=== PATIENT | female | born 1965 | race Hispanic/Latino ===

== ENCOUNTER → 2021-12-09 | Outpatient (CLI) | payer OTHER | END | disposition home or self-care (01) | LOC: OIH 10:42 | PROVIDERS: ATTEND Internal Medicine Cardiovascular Disease | DX: Z13.6 Encounter for screening for cardiovascular disorders (principal) | CPT/HCPCS: 75571 ==

== ENCOUNTER → 2023-05-09 | Outpatient (CLI) | payer OTHER | END | disposition home or self-care (01) | LOC: RAH 07:00 | PROVIDERS: ATTEND Internal Medicine Gastroenterology | DX: R10.10 Upper abdominal pain, unspecified (principal); R11.0 Nausea | CPT/HCPCS: 78227; A9537 ==

== ENCOUNTER → 2023-06-01 | Outpatient (CLI) | payer OTHER, MEDICARE ==
[~2023-06-01] MED LIST: IOHEXOL-350 75 ML VIAL IV ONE
== END | disposition home or self-care (01) ==
LOC: RAH 10:00
PROVIDERS: ATTEND Internal Medicine Gastroenterology
DX: R10.10 Upper abdominal pain, unspecified (principal); Z98.890 Other specified postprocedural states
CPT/HCPCS: 74178; Q9967

== ENCOUNTER → 2024-03-05 | Outpatient (CLI) | payer OTHER, MEDICARE | END | disposition home or self-care (01) | LOC: RAH 09:06 | PROVIDERS: ATTEND Family Medicine | DX: M67.431 Ganglion, right wrist (principal) | CPT/HCPCS: 76882 ==

== ENCOUNTER 2025-07-04 06:24 | Observation (INO) | payer OTHER, MEDICARE ==
[2025-07-03 09:15] LABS: IMMATURE GRANULOCYTE ABSOLUTE 0.03 K/uL (0-1); NUCLEATED RED BLOOD CELLS 0.0 % (0.0-0.19); PLATELET COUNT (AUTO) 358 K/uL (130-400); RED BLOOD CELL COUNT(AUTO) 5.05 MIL/uL (4.00-5.50); RED CELL DISTRIBUTION WIDTH 14.6 % (11.0-15.5); WHITE BLOOD COUNT (AUTO) 8.1 K/uL (4.8-10.8)
[2025-07-03 09:24] LABS: CREATININE 0.8 mg/dL (0.5-1.0); GLOMERULAR FILTR. RATE CALC 85.0 mL/min (>90); GLUCOSE,RANDOM 171.0 mg/dL (70-105); SODIUM SERUM 139.0 mmol/L (136-145); UREA NITROGEN, BLOOD 18.0 mg/dL (7-18)
[2025-07-03 09:30] LABS: INR 0.94 (0.85-1.15)
[2025-07-03 09:37] VITALS: BP 134/74; PULSE 63; RESP 11; TEMP 97.9
[2025-07-04] VITALS (32 sets, daily range): BP systolic 93–144; BP diastolic 51–81; PULSE 66–106; RESP 15–21; TEMP 97.2–97.7; O2SAT 98
[~2025-07-04] VITALS: Ht 162.6 cm; Wt 80.8 kg
[~2025-07-04 06:24] MED LIST changes: +BENZ200C53 PO; +FLUO40CA49 PO; +GABA-529 PO; +INSU100V45 SQ; -IOHEXOL-350 75 ML VIAL IV ONE; +LORA2DIS5 IJ; +METF-444 PO; +OMEP40CA21 PO; +OXCA300T28 PO; +PIOG30TA70 PO; +PRAV10TA37 PO; +SEMA2PEN SQ; +TOPI-258 PO
[2025-07-04] MEDS: 0.9%NACL 1000ML 1,000 ML IV ONE (07:02)
[2025-07-04] MEDS ORDERED: SUCCINYLCHOLINE CHLORIDE 20 MG/ML 10 ML VIAL ONE (07:14)
[2025-07-04] MEDS ORDERED: LIDOCAINE PF 100MG/5ML (2%) SYRINGE 5ML ONE (07:14)
[2025-07-04] MEDS ORDERED: MIDAZOLAM HCL 1 MG/ML 2ML VIAL ONE (07:15)
[2025-07-04] MEDS: SUGAMMADEX SODIUM 200 MG/2 ML VIAL IV ONE (07:47)
--- NOTE | 2025-07-04 10:17 | OP ---
Operative Note: DATE OF PROCEDURE: 07/04/25 BASKET HAND WEAVER: None ANESTHESIA: General PREOPERATIVE DIAGNOSIS: 1. DJD, osteochondral defect left ankle 2. Ankle instability left POSTOPERATIVE DIAGNOSIS: Same Findings: Medial 3rd of the talus was cystic and the cartilage was delaminated PROCEDURE: 1. Total ankle arthroplasty with the implant left 2. Lateral ankle stabilization left ESTIMATED BLOOD LOSS: Minimal INDICATIONS: Patient had 3 procedure done in the left ankle for ankle problem by different surgeons. MRI shows degeneration of the medial 1/3 of the talar dome and sign of multiple lateral ankle stabilization procedures. The patient wanted more definitive procedure done for the cystic ankle problem. Injectables: 10 cc of 0.5% Marcaine plain locally. Popliteal block per anesthesia postoperatively Specimen: None Materials: Sherry Talaris Ankle implant of size 0 long tibia and size 0 talus. 3-0 Vicryl, 3-0 nylon, #2 FiberWire Hemostasis: Pneumonic thigh tourniquet at 280 mm Hg DESCRIPTION OF PROCEDURE: The patient was brought into the operating room and placed on table in a supine position and general anesthesia was induced. Time-out was called with all the staff in the room to identify the patient procedure and procedure site. Patient's left lower extremity was prepped and draped in usual aseptic manner, exsanguinated utilizing Esmarch bandage and pneumonic thigh tourniquet was inflated at 280 mm Hg. Procedure 1. Total ankle replacement left A curvilinear incision was made on the anterior aspect of the ankle. Incision was deepened in subcu tissue, care being taken to retract and protect all the vital neurovascular structures. Medial dorsal cutaneous nerve was retracted laterally. Extensor retinaculum were then incised longitudinally. Deeper dissection was carried down between the tibialis anterior tendon and extensor hallucis longus tendon. Major neurovascular bundle was retracted laterally. Small bleeders were coagulated. Capsular incision was made in the anterior aspect of the ankle joint longitudinally. Capsular layer was reflected medially and laterally to expose the ankle joint. Medial 1/3 portion of the talus was delaminated and cystic lesion was seen. Osteophyte was resected and passed from the operative site. Alignment jig was then placed on the left lower extremity. Using alignment jig cutting guide was placed in the position to take out mild varus deformity upon osteotomy. Using the aligned cutting block confirmed under the fluoroscopy in multiple views tibia and talus osteotomy were made. Trial was used to align for keel and stem placements. After measuring, size 0 implant was the best option for the patient. The trials were removed and the surgical wound was irrigated aggressively utilizing copious amounts of normal sterile saline with a pressure. The actual implant was then inserted and placement was confirmed under the fluoroscopy in multiple views. Range of motion was maintained and the ankle was stable. Procedure 2. Lateral ankle stabilization left At this point previous tendon transfer was identified on the lateral aspect of the incision the tendon was firmly fixated into the tarsal bone periosteal layer of the lateral malleolus and remaining anterior talofibular ligament was then sutured onto the stable tendon which was anchored into the talus to tighten the lateral collateral ligament while patient's foot was placed in a neutral position. #2 FiberWire was utilized for this task. Lateral ankle stability was confirmed. Under fluoroscopy the ankle was stressed in inversion motion and there was no displacement noted. The surgical wound was once again irrigated aggressively utilizing copious amounts of normal sterile saline with a pressure. With new instruments, capsul ar layer was reapproximated utilizing 3-0 Vicryl extensor retinaculum with 3-0 Vicryl subcutaneous tissue layer with 3-0 Vicryl and skin via 3-0 nylon. The surgical wound was dressed with dry sterile dressing followed by Saleh compression dressing. The patient tolerated the procedure and anesthesia. SEAN JAIN DPM Jul 04, 2025 10:17
--- NOTE | 2025-07-04 10:28 | HMCIMG ---
ANKLE COMP 3VWS LT REASON: LT total ankle TECHNIQUE: 7 views were obtained. FINDINGS: Patient undergoing ankle arthroplasty. Fluoroscopy time 2 minutes 40 seconds. IMPRESSION: Details of the finding in the operative notes.
--- NOTE | 2025-07-04 14:10 | CONS ---
[facility] CONSULTATION NOTE Date of Service: Jul 04, 2025 Reason for Consultation: [ medical management ] Requesting Physician: [ Dr Ana BERG ] HISTORY OF PRESENT ILLNESS: [ ] This is a 60 year old female with history of multiple surgeries to left foot in the past is here today she underwent Total ankle arthroplasty with the implant left and Lateral ankle stabilization left given to DJD, osteochondral defect left ankle and ankle instability. Hospitalist consulted for medical management. The patient has foot brace applied to left foot The patient is fully awake reports dull pain at this time to surgical area. Denies chest pain or shortness of breath. REVIEW OF SYSTEMS a 12 point ROS obtained all relevant positive documented ROS obtained. PAST MEDICAL HISTORY: [ ]DM HTN, HLD GERD PAST SURGICAL HISTORY: [ ]appendectomy breast sx, multiple foot surgery, hernia repair, hysterectomy, tonsillectomy PAST SOCIAL HISTORY: [ ]denies smoking tobacco products and ETOH use FAMILY HISTORY: [ ] dm HTN father and mother Coded Allergies: levetiracetam (Unverified Allergy, Unknown, 07/03/25) lisinopril (Unverified Allergy, Unknown, 07/03/25) PHYSICAL EXAM GENERAL APPEARANCE: The patient is awake, alert, and oriented, in no acute cardiopulmonary distress. NEUROLOGICAL: Cranial nerves II-XII grossly intact. Motor is 5/5 in bilateral upper and lower extremities proximal to distal. No sensory deficits. HEENT: Face is symmetric. Pupils are equal and reactive. Extraocular movements are intact. NECK: Supple. No JVD. No thyromegaly. No submental, submandibular, pre- /postauricular, occipital or supraclavicular lymphadenopathy. CHEST: Normal chest expansion. No Telemetry. LUNGS: Absence of any rales, rhonchi or any wheezing. CARDIOVASCULAR: Regular. S1 and S2 normal. No appreciable rubs, murmurs or gallops. ABDOMEN: Soft, nontender, and nondistended. There is no rebound, voluntary guarding, or rigidity. : Deferred. No Hair. EXTREMITIES: Non-edematous and not cyanotic. No clubbing. Good capillary refill. SKIN: No skin breakdown. Vital Sign (Last 24 Hours) 07/04/25 07/04/25 10:55 12:09 Temp 97.3 Pulse 86 Resp 15 B/P (MAP) 120/74 Pulse Ox 98 O2 Delivery Room Air* O2 Flow Rate 0 FiO2 21 LABS: Laboratory: Test 07/04/25 10:06 07/03/25 09:05 Range/Units Whole Blood Glucose 251 H 70-110 MG/DL White Blood Count 8.1 4.8-10.8 K/uL Red Blood Count 5.05 4.00-5.50 MIL/uL Hemoglobin 13.7 12.0-16.0 g/dL Hematocrit 41.3 36-48 % Mean Corpuscular Volume 81.8 79-99 fL Mean Corpuscular Hemoglobin 27.1 27.0-33.0 pg Mean Corpuscular Hemoglobin Concent 33.2 32.0-36.0 g/dL Red Cell Distribution Width 14.6 11.0-15.5 % Platelet Count 358 130-400 K/uL Mean Platelet Volume 9.0 7.5-10.5 fL Immature Granulocyte % (Auto) 0.4 0-1 % Neutrophils (%) (Auto) 62.0 40.0-77.0 % Lymphocytes (%) (Auto) 26.2 21.0-51.0 % Monocytes (%) (Auto) 6.8 3.0-13.0 % Eosinophils (%) (Auto) 4.0 0.0-8.0 % Basophils (%) (Auto) 0.6 0.0-5.0 % Neutrophils # (Auto) 5.0 1.8-7.7 K/uL Lymphocytes # (Auto) 2.1 1.0-4.8 K/uL Monocytes # (Auto) 0.6 0.1-1.0 K/uL Eosinophils # (Auto) 0.32 0.00-0.70 K/uL Basophils # (Auto) 0.05 0.00-0.20 K/uL Absolute Immature Granulocyte (auto 0.03 0-1 K/uL Nucleated Red Blood Cells 0.0 0.0-0.19 % Prothrombin Time 10.0 9.6-11.6 SEC Prothromb Time International Ratio 0.94 0.85-1.15 Activated Partial Thromboplast Time 25.9 L 26.3-35.5 SEC Sodium Level 139 136-145 mmol/L Potassium Level 4.9 3.5-5.1 mmol/L Chloride Level 104 101-111 mmol/L Carbon Dioxide Level 32 21-32 mmol/L Blood Urea Nitrogen 18 7-18 mg/dL Creatinine 0.8 0.5-1.0 mg/dL Glomerular Filtration Rate Calc 85 >90 mL/min Random Glucose 171 H 70-105 mg/dL Total Calcium 9.0 8.5-10.1 mg/dL DIAGNOSTICS / RADIOLOGY: [ ] ASSESSMENT: Medial 3rd of the talus was cystic and the cartilage was delaminated s/p Total ankle arthroplasty with the implant left PLAN: [ ] Admit: medical surgical stool condition: guarded Status: Full coded IVF:NS at 75 ml/hr Consultants will follow Dr Perez post operative recommendations > Elevated left foot with 2 pillows > ice behind left knee > NWB left lower ext > PT teaching on crutches vs -walker Antibiotics:none ac/hs monitoring with SSRi coverage Labs cbc, cmp, mag+ Replace electrolytes as needed as per protocol to keep potassium above 4.0 magnesium 2.0. Home medications reviewed and reconciled PRN: MEDICATIONS Tylenol 650 mg po every 4 hrs for fever Zofran 4 mg IV every 6 hrs for n/v Hydralazine 5 mg IV every 4 hrs systolic pressure > 160 bowel regiment: lactulose 20 gm PO BID PRN constipation Pain management: morphine 2mg IV as needed 4 hrs . Supportive measures: DVT ppx, GI ppx all questions answered time spent: > 35 min Supervising MD: Dr. Jose Jones c/d This document was generated in part using voice recognition software, occasional wrong word or sound alike substitutions may have occurred due to the inherent limitations of voice recognition software. Read the chart carefully and recognize using context, where the substitutions have occurred. Although every effort was made to edit the content, hand weaver and typing errors may occur ADVANCED CARE PLANNING 1. Which of the following were discussed? Hospice Care - Yes / No Therapeutic options - Yes / No Advance Directives - Yes / No Other discussions - 2. Discussed with who? 3. Voluntary nature of this service was explained to the patient? Yes / No 4. Amount of time spent - 5. Reviewed by Physician? (if this service was performed by NPP) Yes / No ATTESTATION BY PHYSICIAN I have seen and examined the patient. I reviewed the documentation, medical decision making, and treatment plan as noted by the mid-level provider above. I agree with the findings and plan of care. MARTA MORRIS MD, [facility] Jul 04, 2025 14:10
[2025-07-04] MEDS ORDERED: LACTULOSE 20 GM/30 ML UDCUP PO PRN (15:00)
[2025-07-04] MEDS ORDERED: PoTASSium chl 10% ELIXIR 20MEQ 20 MEQ/15 ML UDCUP PO PRN (15:00)
[2025-07-04] MEDS ORDERED: MAGNESIUM 2GM PREMIX 50ML 50 ML IV PRN (15:00)
--- NOTE | 2025-07-04 15:32 | PN ---
Subjective Review of Systems PROGRESS NOTE Date of Visit: Jul 04, 2025 Time of Visit: 15:27 Subjective Seen 6 hours s/p TAR left. Doing well. Pain is starting. Just ordered pain med. No constitutional symp. + appetite. Had a sandwich. General: No Fever, No Chills, No Night Sweats, No Fatigue, No Malaise, No Appetite, No Other Objective Vitals and I/O Vital Sign (Last 24 Hours) 07/04/25 07/04/25 10:55 12:09 Temp 97.3 Pulse 86 Resp 15 B/P (MAP) 120/74 Pulse Ox 98 O2 Delivery Room Air* O2 Flow Rate 0 FiO2 21 Other physical findings No strike through. Left extremity rested on a cushion. Medications Current Medications Cefazolin Sodium 2 gm STK-MED ONCE .ROUTE Last administered on 07/04/25at 07:34; Start 07/04/25 at 06:09; Stop 07/04/25 at 06:09; Status DC Sodium Chloride 1,000 ml @ As Directed STK-MED ONCE IV Last administered on 07/04/25at 07:02; Start 07/04/25 at 06:09; Stop 07/04/25 at 06:10; Status DC Lidocaine HCl 100 mg STK-MED ONCE .ROUTE; Start 07/04/25 at 07:14; Stop 07/04/25 at 07:14; Status DC Phenylephrine HCl 10 mg STK-MED ONCE IV; Start 07/04/25 at 07:14; Stop 07/04/25 at 07:14; Status DC Ondansetron HCl 4 mg STK-MED ONCE .ROUTE; Start 07/04/25 at 07:14; Stop 07/04/25 at 07:14; Status DC Succinylcholine Chloride 200 mg STK-MED ONCE .ROUTE; Start 07/04/25 at 07:14; Stop 07/04/25 at 07:15; Status DC Dexamethasone Sodium Phosphate 10 mg STK-MED ONCE .ROUTE; Start 07/04/25 at 07:14; Stop 07/04/25 at 07:15; Status DC Midazolam HCl 2 mg STK-MED ONCE .ROUTE; Start 07/04/25 at 07:15; Stop 07/04/25 at 07:15; Status DC Propofol 200 mg STK-MED ONCE IV; Start 07/04/25 at 07:15; Stop 07/04/25 at 07:15; Status DC Ketamine HCl 50 mg STK-MED ONCE .ROUTE; Start 07/04/25 at 07:15; Stop 07/04/25 at 07:15; Status DC Rocuronium Perry 50 mg STK-MED ONCE .ROUTE; Start 07/04/25 at 07:15; Stop 07/04/25 at 07:15; Status DC Fentanyl Citrate 100 mcg STK-MED ONCE .ROUTE; Start 07/04/25 at 07:15; Stop 07/04/25 at 07:16; Status DC Fentanyl Citrate 100 mcg STK-MED ONCE .ROUTE; Start 07/04/25 at 07:44; Stop 07/04/25 at 07:44; Status DC Acetaminophen 100 ml @ As Directed STK-MED ONCE .ROUTE; Start 07/04/25 at 07:47; Stop 07/04/25 at 07:47; Status DC Ephedrine Sulfate 50 mg STK-MED ONCE .ROUTE; Start 07/04/25 at 08:04; Stop 07/04/25 at 08:04; Status DC Bupivacaine HCl 5 mg STK-MED ONCE .ROUTE Last administered on 07/04/25at 09:40; Start 07/04/25 at 09:37; Stop 07/04/25 at 09:37; Status DC Fentanyl Citrate 100 mcg STK-MED ONCE .ROUTE Last administered on 07/04/25at 10:13; Start 07/04/25 at 10:11; Stop 07/04/25 at 10:11; Status DC Gabapentin 100 mg TID PO; Start 07/04/25 at 21:00; Stop 08/03/25 at 20:59 Insulin Human Lispro 100 unit AD SQ; Start 07/04/25 at 15:00; Stop 08/03/25 at 14:59; Status UNV Oxcarbazepine 300 mg BID PO; Start 07/04/25 at 21:00; Stop 08/03/25 at 20:59 Topiramate 100 mg BID PO; Start 07/04/25 at 21:00; Stop 08/03/25 at 20:59 Benzonatate 100 mg TID PO; Start 07/04/25 at 21:00; Stop 08/03/25 at 20:59 Fluoxetine HCl 40 mg DAILY PO; Start 07/05/25 at 09:00; Stop 08/04/25 at 08:59 Atorvastatin Calcium 5 mg PM PO; Start 07/04/25 at 21:00; Stop 08/03/25 at 20:59 Famotidine 20 mg BID PO; Start 07/04/25 at 21:00; Stop 08/03/25 at 20:59 Morphine Sulfate 2 mg Q4H PRN IVP; Start 07/04/25 at 15:00; Stop 07/11/25 at 14:59 Acetaminophen 650 mg Q4H PRN PO; Start 07/04/25 at 15:00; Stop 08/03/25 at 14:59 Ondansetron HCl 4 mg Q6H PRN IVP; Start 07/04/25 at 15:00; Stop 08/03/25 at 14:59 Lactulose 20 gm BID PRN PO; Start 07/04/25 at 15:00; Stop 08/03/25 at 14:59 Potassium Chloride 100 ml @ 100 mls/hr AD PRN IV; Start 07/04/25 at 15:00; Stop 08/03/25 at 14:59 Potassium Chloride 20 meq AD PRN PO; Start 07/04/25 at 15:00; Stop 08/03/25 at 14:59 Potassium Chloride 20 meq AD PRN PO; Start 07/04/25 at 15:00; Stop 08/03/25 at 14:59 Magnesium Sulfate 50 ml @ 0 mls/hr PROTOCOL PRN IV; Start 07/04/25 at 15:00; Stop 08/03/25 at 14:59 Insulin Human Regular INSULIN SLIDING SCAL... ACHS SQ; Start 07/04/25 at 16:30; Stop 08/03/25 at 16:29 Assessment/Plan ASSESSMENT: s/p TAR, doing well. PLAN: OK to D/C tomorrow if pain is controlled. F/U in 1 week at [facility] with Dr. Jain PT consult pending for a walker training for non- partial-weight bearing status. My Orders - SEAN JAIN DPM Procedure Category Date Status Time Ankle Comp 3vws Lt RAD 07/04/25 Resulted 09:45 *Nursing CPOE 07/04/25 Transmitted Communication: 13:39 SEAN JAIN DPM Jul 04, 2025 15:32
--- NOTE | 2025-07-04 18:00 | NUR ---
SEIZURE. Addendum: 07/05/25 at 0929 by KHAI SHAH PT Amended: Links added.
[2025-07-04] MEDS: BENZONATATE 100 MG CAPSULE PO SCH (20:43)
[2025-07-04] MEDS: FAMOTIDINE 20MG TAB PO SCH (20:43)
[2025-07-05] VITALS (8 sets, daily range): BP systolic 94–125; BP diastolic 50–67; PULSE 68–90; RESP 17–20; TEMP 98.2–98.6; O2SAT 96
[2025-07-05] MEDS: HYDROcodone/APAP 5/325 1 TAB TABLET PO PRN (00:45)
--- NOTE | 2025-07-05 08:53 | PN ---
[facility] PROGRESS NOTE Date of Service: Jul 05, 2025 Time of Service: 08:52 SUBJECTIVE: [ ] This is a 60 year old female with history of multiple surgeries to left foot in the past is here today she underwent Total ankle arthroplasty with the implant left and Lateral ankle stabilization left given to DJD, osteochondral defect left ankle and ankle instability. Hospitalist consulted for medical management. The patient has foot brace applied to left foot 07/05/25 on examination patient was having doritos chips patient blood sugars have been elevated. The patient daugher reports she on a insulin pump which it was placed on Hold for surgery: she will go home now to get device. , physical therapy work with patient instructed how to use walker nonweightbearing continues with eye applications. All questions addressed REVIEW OF SYSTEMS a 12 point ROS obtained all relevant positive documented ROS obtained. PHYSICAL EXAM GENERAL APPEARANCE: The patient is awake, alert, and oriented, in no acute cardiopulmonary distress. NEUROLOGICAL: Cranial nerves II-XII grossly intact. Motor is 5/5 in bilateral upper and lower extremities proximal to distal. No sensory deficits. HEENT: Face is symmetric. Pupils are equal and reactive. Extraocular movements are intact. NECK: Supple. No JVD. No thyromegaly. No submental, submandibular, pre- /postauricular, occipital or supraclavicular lymphadenopathy. CHEST: Normal chest expansion. No Telemetry. LUNGS: Absence of any rales, rhonchi or any wheezing. CARDIOVASCULAR: Regular. S1 and S2 normal. No appreciable rubs, murmurs or gallops. ABDOMEN: Soft, nontender, and nondistended. There is no rebound, voluntary guarding, or rigidity. : Deferred. No Hair. EXTREMITIES: Non-edematous and not cyanotic. No clubbing. Good capillary refill. SKIN: No skin breakdown. Vital Signs (last 8hr) Date Time Temp Pulse Resp B/P (MAP) Pulse Ox O2 Delivery O2 Flow Rate FiO2 07/05/25 04:00 98.2 82 18 97/53 96 Room Air LABS: Laboratory: Test 07/05/25 05:21 07/04/25 21:24 07/04/25 21:10 07/03/25 09:05 Range/Units Whole Blood Glucose 304 H 70-110 MG/DL Random Glucose 495 *H 70-105 mg/dL Bedside Glucose Comment Notified Nurse White Blood Count 8.1 4.8-10.8 K/uL Red Blood Count 5.05 4.00-5.50 MIL/uL Hemoglobin 13.7 12.0-16.0 g/dL Hematocrit 41.3 36-48 % Mean Corpuscular Volume 81.8 79-99 fL Mean Corpuscular Hemoglobin 27.1 27.0-33.0 pg Mean Corpuscular Hemoglobin Concent 33.2 32.0-36.0 g/dL Red Cell Distribution Width 14.6 11.0-15.5 % Platelet Count 358 130-400 K/uL Mean Platelet Volume 9.0 7.5-10.5 fL Immature Granulocyte % (Auto) 0.4 0-1 % Neutrophils (%) (Auto) 62.0 40.0-77.0 % Lymphocytes (%) (Auto) 26.2 21.0-51.0 % Monocytes (%) (Auto) 6.8 3.0-13.0 % Eosinophils (%) (Auto) 4.0 0.0-8.0 % Basophils (%) (Auto) 0.6 0.0-5.0 % Neutrophils # (Auto) 5.0 1.8-7.7 K/uL Lymphocytes # (Auto) 2.1 1.0-4.8 K/uL Monocytes # (Auto) 0.6 0.1-1.0 K/uL Eosinophils # (Auto) 0.32 0.00-0.70 K/uL Basophils # (Auto) 0.05 0.00-0.20 K/uL Absolute Immature Granulocyte (auto 0.03 0-1 K/uL Nucleated Red Blood Cells 0.0 0.0-0.19 % Prothrombin Time 10.0 9.6-11.6 SEC Prothromb Time International Ratio 0.94 0.85-1.15 Activated Partial Thromboplast Time 25.9 L 26.3-35.5 SEC Sodium Level 139 136-145 mmol/L Potassium Level 4.9 3.5-5.1 mmol/L Chloride Level 104 101-111 mmol/L Carbon Dioxide Level 32 21-32 mmol/L Blood Urea Nitrogen 18 7-18 mg/dL Creatinine 0.8 0.5-1.0 mg/dL Glomerular Filtration Rate Calc 85 >90 mL/min Total Calcium 9.0 8.5-10.1 mg/dL Current Medications Medications (Trade) Dose Ordered Sig/Elana Route PRN Reason Start Time Stop Time Status Last Admin Dose Admin Acetaminophen (TYLenol 325MG TAB) 650 mg Q4H PRN PO TEMPERATURE GREATER THAN 101.5 07/04/25 15:00 08/03/25 14:59 Acetaminophen/ Hydrocodone Bitart (NORco 5/325MG) 1 tab Q6H PRN PO MODERATE PAIN (4-6) 07/04/25 20:00 07/09/25 19:59 07/05/25 00:45 1 TAB Atorvastatin Calcium (LIPItor 10MG) 5 mg PM PO 07/04/25 21:00 08/03/25 20:59 07/04/25 20:43 5 MG Benzonatate (Tessalon 100mg Caps) 100 mg TID PO 07/04/25 21:00 08/03/25 20:59 07/04/25 20:43 100 MG Famotidine (Pepcid 20mg Tab) 20 mg BID PO 07/04/25 21:00 08/03/25 20:59 07/04/25 20:43 20 MG Fluoxetine HCl (FLUoxetine HCL 20 MG CAPSULE) 40 mg DAILY PO 07/05/25 09:00 08/04/25 08:59 Gabapentin (NEURontin 100 mg CAP) 100 mg TID PO 07/04/25 21:00 08/03/25 20:59 07/04/25 20:43 100 MG Insulin Human Lispro (HumaLOG LISpro 100 UNIT/ML 3ML) 100 unit AD SQ 07/04/25 15:00 07/04/25 20:26 DC Insulin Human Regular (humuLIN R 100 UNIT/ML 3ML) INSULIN SLIDING SCAL... ACHS SQ 07/04/25 16:30 08/03/25 16:29 07/05/25 06:16 14 UNIT Lactulose (Constulose 20gm/ 30ml Udcup) 20 gm BID PRN PO CONSTIPATION 07/04/25 15:00 08/03/25 14:59 Magnesium Sulfate 50 ml @ 0 mls/hr PROTOCOL PRN IV low mag level 07/04/25 15:00 08/03/25 14:59 Morphine Sulfate (morPHINE 2MG SYG) 2 mg Q4H PRN IVP SEVERE PAIN (7-10) 07/04/25 15:00 07/11/25 14:59 07/05/25 05:33 2 MG Ondansetron HCl (zoFRAN 4MG INJ) 4 mg Q6H PRN IVP NAUSEA/VOMITING 07/04/25 15:00 08/03/25 14:59 Oxcarbazepine (TRILeptAL) 300 mg BID PO 07/04/25 21:00 08/03/25 20:59 07/04/25 20:43 300 MG Potassium Chloride 100 ml @ 100 mls/hr AD PRN IV POTASSIUM PROTOCOL 07/04/25 15:00 08/03/25 14:59 Potassium Chloride (K-Dur/Klor-Con 20meq) 20 meq AD PRN PO POTASSIUM PROTOCOL 07/04/25 15:00 08/03/25 14:59 Potassium Chloride (KCl 10% Elixir 20meq/15ml) 20 meq AD PRN PO POTASSIUM PROTOCOL 07/04/25 15:00 08/03/25 14:59 Topiramate (TopaMAX) 100 mg BID PO 07/04/25 21:00 08/03/25 20:59 07/04/25 20:42 100 MG DIAGNOSTICS / RADIOLOGY: [ ] ASSESSMENT: Medial 3rd of the talus was cystic and the cartilage was delaminated s/p Total ankle arthroplasty with the implant left PLAN: [ ] Admit: medical surgical stool condition: guarded Status: Full coded IVF: Hep-Lock Consultants will follow Dr Perez post operative recommendations > Elevated left foot with 2 pillows > ice behind left knee > NWB left lower ext > PT teaching on crutches vs -walker Antibiotics:none ac/hs monitoring with SSRi coverage we will restart her insulin pump on this admission POD 2 Labs cbc, cmp, mag+ Replace electrolytes as needed as per protocol to keep potassium above 4.0 magnesium 2.0. Home medications reviewed and reconciled PRN: MEDICATIONS Tylenol 650 mg po every 4 hrs for fever Zofran 4 mg IV every 6 hrs for n/v Hydralazine 5 mg IV every 4 hrs systolic pressure > 160 bowel regiment: lactulose 20 gm PO BID PRN constipation Pain management: morphine 2mg IV as needed 4 hrs . Supportive measures: DVT ppx, GI ppx all questions answered Supervising MD: Dr. Jose pressley/shital ATTESTATION BY PHYSICIAN I have seen and examined the patient. I reviewed the documentation, medical decision making, and treatment plan as noted by the mid-level provider above. I agree with the findings and plan of care. MARTA MORRIS MD, [facility] Jul 05, 2025 08:53
--- NOTE | 2025-07-05 12:00 | NUR ---
[facility] CM MET WITH PT AND DAUGHTER KYLAH BAEZ THIS MORNING, INITIAL ASSESSMENT DONE. PATIENT IS SEMI-INDEPENDENT PRIOR TO SURGERY, LIVE AT HOME WITH 2 DAUGHTERS, SON IN LAW, AND 2 GRANDCHILDREN. AT HOME PATIENT HAS A WHEELCHAIR, KNEE SCOOTER, SHOWER CHAIR, GLUCOSE CONTINUOUS MONITORING, INSULIN PUMP, PROVIDER 23HRS, USES [facility] FOR MEDS. DENIES ANY OTHER EQUIPMENT/SERVICES. FEELS SAFE TO GO BACK HOME, DOES NOT DRIVE, FAMILY ABLE TO ASSIST WITH TRANSPORTATION AND NEEDS NECESSARY. DISCUSSED POSSIBLE HOME W/HH VS SNF FOR SHORT TERM REHAB PENDING MD RECOMMENDATIONS AND PT MIGHT NEED A STANDARD WALKER CM TO ARRANGE IF NEEDED PENDING PT RECS. PT AND DAUGHTER PREFERS TO GO BACK HOME, AGREEABLE FOR HH AND DME ONLY IF NEEDED, DAUGHTER SIGNED CONSENT [facility] FOR ANY IN NETWORK HH AND DME. [facility] HOME VS W/HH. OSCAR MARTIN UPDATED, PENDING MD RECS. CM TO CONTINUE TO FOLLOW UP. Addendum: 07/05/25 at 1207 by JAYLEN WALLACE LVN CM Amended: Links added.
[2025-07-05 12:31] LABS: ABG OXYGEN SATURATION 83.6 % (94.0-98.0); BASE EXCESS,VENOUS BLOOD GAS -3.6 (-2.0-3.0); HCO3,VENOUS BLOOD GAS 22.5 (22.0-29.0); PCO2,VENOUS BLOOD GAS 45 (38-54); PH,VENOUS BLOOD GAS 7.320 (7.320-7.430); PO2,VENOUS BLOOD GAS 51.5 mmHg (23.0-48.0); TEMPERATURE, CELSIUS BG 37.0 CELSIUS (35.5-37.0); VENT MODE, BG RA (ROOM AIR)
[2025-07-05 12:31] LABS: NUCLEATED RED BLOOD CELLS 0.0 % (0.0-0.19); PLATELET COUNT (AUTO) 331.0 K/uL (130-400); RED BLOOD CELL COUNT(AUTO) 4.27 MIL/uL (4.00-5.50); RED CELL DISTRIBUTION WIDTH 14.8 % (11.0-15.5); WHITE BLOOD COUNT (AUTO) 15.5 K/uL (4.8-10.8)
[2025-07-05 12:47] LABS: CREATININE 0.9 mg/dL (0.5-1.0); GLOMERULAR FILTR. RATE CALC 74.0 mL/min (>90); GLUCOSE,RANDOM 214.0 mg/dL (70-105); SODIUM SERUM 138.0 mmol/L (136-145); UREA NITROGEN, BLOOD 17.0 mg/dL (7-18)
[2025-07-05 12:51] LABS: ASPARTATE AMINOTRANSFERASE 14.0 U/L (10-37); TOTAL PROTEIN, SERUM 6.4 g/dL (6.0-8.3)
[2025-07-05] MEDS: SODIUM BICARBONATE 650 MG TAB PO SCH (14:33)
--- NOTE | 2025-07-05 18:11 | PN ---
Subjective Review of Systems PROGRESS NOTE Date of Visit: Jul 05, 2025 Time of Visit: 18:05 Subjective HD#1 S/p TAR left. Pain is controlled with Morphine and Hydrocodone. Still needing Morphine. Otherwise, doing well. No constitutional symp. + appetite. Had a walker with training. General: No Fever, No Chills, No Night Sweats, No Fatigue, No Malaise, No Appetite, No Other Objective Vitals and I/O Vital Sign (Last 24 Hours) 07/05/25 07/05/25 08:00 09:05 Temp 98.6 Pulse 76 Resp 18 B/P (MAP) 94/50 Pulse Ox 96 O2 Delivery Room Air* O2 Flow Rate 0 FiO2 21 Intake & Output (last 24hrs) 07/04/25 07/04/25 07/05/25 15:00 23:00 07:00 Intake Total 35.0 ml Output Total 0 ml Balance 35.0 ml Other physical findings No strike though. No sign of DVT. Results Laboratory Tests Test 07/04/25 21:10 07/04/25 21:24 07/05/25 05:21 07/05/25 11:51 Whole Blood Glucose 427 MG/DL (70-110) #*H 304 MG/DL (70-110) H 192 MG/DL (70-110) H Bedside Glucose Comment Notified Nurse Notified Nurse Random Glucose 495 mg/dL (70-105) *H Test 07/05/25 11:54 07/05/25 12:30 07/05/25 15:50 White Blood Count 15.5 K/uL (4.8-10.8) H Red Blood Count 4.27 MIL/uL (4.00-5.50) Hemoglobin 11.7 g/dL (12.0-16.0) L Hematocrit 34.9 % (36-48) L Mean Corpuscular Volume 81.7 fL (79-99) Mean Corpuscular Hemoglobin 27.4 pg (27.0-33.0) Mean Corpuscular Hemoglobin Concent 33.5 g/dL (32.0-36.0) Red Cell Distribution Width 14.8 % (11.0-15.5) Platelet Count 331 K/uL (130-400) Mean Platelet Volume 9.2 fL (7.5-10.5) Nucleated Red Blood Cells 0.0 % (0.0-0.19) Sodium Level 138 mmol/L (136-145) Potassium Level 3.8 mmol/L (3.5-5.1) Chloride Level 106 mmol/L (101-111) Carbon Dioxide Level 25 mmol/L (21-32) Blood Urea Nitrogen 17 mg/dL (7-18) Creatinine 0.9 mg/dL (0.5-1.0) Glomerular Filtration Rate Calc 74 mL/min (>90) Random Glucose 214 mg/dL (70-105) #H Hemoglobin A1c 7.2 % (4.0-6.0) H Estimated Average Glucose (eAG) 160 mg/dL (70-126) H Whole Blood Ketones Quantitative 0.1 mmol/L (0.0-0.6) Total Calcium 8.1 mg/dL (8.5-10.1) L Magnesium Level 1.90 mg/dL (1.80-2.40) Total Bilirubin 0.3 mg/dL (0.2-1.0) Aspartate Amino Transf (AST/SGOT) 14 U/L (10-37) Alanine Aminotransferase (ALT/SGPT) 32 U/L (12-78) Alkaline Phosphatase 150 U/L (50-136) H Total Protein 6.4 g/dL (6.0-8.3) Albumin 2.8 g/dL (3.5-5.0) L Blood Gas Specimen Type Venous Arterial Blood Oxygen Saturation 83.6 % (94.0-98.0) L Venous Blood pH 7.320 (7.320-7.430) Venous Blood pCO2 at Patient Temp 45 (38-54) Venous Blood pO2 at Patient Temp 51.5 mmHg (23.0-48.0) H Venous Blood HCO3 22.5 (22.0-29.0) Venous Blood Base Excess -3.6 (-2.0-3.0) L Blood Gas Temperature 37.0 CELSIUS (35.5-37.0) Blood Gas Vent Mode RA (ROOM AIR) FiO2 21.0 % Blood Gas Specimen Comment NICK POLLOCK Whole Blood Glucose 188 MG/DL (70-110) H Bedside Glucose Comment Notified Nurse Medications Current Medications Cefazolin Sodium 2 gm STK-MED ONCE .ROUTE Last administered on 07/04/25at 07:34; Start 07/04/25 at 06:09; Stop 07/04/25 at 06:09; Status DC Sodium Chloride 1,000 ml @ As Directed STK-MED ONCE IV Last administered on 07/04/25at 07:02; Start 07/04/25 at 06:09; Stop 07/04/25 at 06:10; Status DC Lidocaine HCl 100 mg STK-MED ONCE .ROUTE; Start 07/04/25 at 07:14; Stop 07/04/25 at 07:14; Status DC Phenylephrine HCl 10 mg STK-MED ONCE IV; Start 07/04/25 at 07:14; Stop at 07:14; Status DC Ondansetron HCl 4 mg STK-MED ONCE .ROUTE; Start 07/04/25 at 07:14; Stop 07/04/25 at 07:14; Status DC Succinylcholine Chloride 200 mg STK-MED ONCE .ROUTE; Start 07/04/25 at 07:14; Stop 07/04/25 at 07:15; Status DC Dexamethasone Sodium Phosphate 10 mg STK-MED ONCE .ROUTE; Start 07/04/25 at 07:14; Stop 07/04/25 at 07:15; Status DC Midazolam HCl 2 mg STK-MED ONCE .ROUTE; Start 07/04/25 at 07:15; Stop 07/04/25 at 07:15; Status DC Propofol 200 mg STK-MED ONCE IV; Start 07/04/25 at 07:15; Stop 07/04/25 at 07:15; Status DC Ketamine HCl 50 mg STK-MED ONCE .ROUTE; Start 07/04/25 at 07:15; Stop 07/04/25 at 07:15; Status DC Rocuronium [place] 50 mg STK-MED ONCE .ROUTE; Start 07/04/25 at 07:15; Stop 07/04/25 at 07:15; Status DC Fentanyl Citrate 100 mcg STK-MED ONCE .ROUTE; Start 07/04/25 at 07:15; Stop 07/04/25 at 07:16; Status DC Fentanyl Citrate 100 mcg STK-MED ONCE .ROUTE; Start 07/04/25 at 07:44; Stop 07/04/25 at 07:44; Status DC Acetaminophen 100 ml @ As Directed STK-MED ONCE .ROUTE; Start 07/04/25 at 07:47; Stop 07/04/25 at 07:47; Status DC Ephedrine Sulfate 50 mg STK-MED ONCE .ROUTE; Start 07/04/25 at 08:04; Stop 07/04/25 at 08:04; Status DC Bupivacaine HCl 5 mg STK-MED ONCE .ROUTE Last administered on 07/04/25at 09:40; Start 07/04/25 at 09:37; Stop 07/04/25 at 09:37; Status DC Fentanyl Citrate 100 mcg STK-MED ONCE .ROUTE Last administered on 07/04/25at 10:13; Start 07/04/25 at 10:11; Stop 07/04/25 at 10:11; Status DC Gabapentin 100 mg TID PO Last administered on 07/05/25at 13:19; Start 07/04/25 at 21:00; Stop 08/03/25 at 20:59 Insulin Human Lispro 100 unit AD SQ; Start 07/04/25 at 15:00; Stop 07/04/25 at 20:26; Status DC Oxcarbazepine 300 mg BID PO Last administered on 07/05/25at 11:21; Start 07/04 at 21:00; Stop 08/03/25 at 20:59 Topiramate 100 mg BID PO Last administered on 07/05/25at 08:56; Start 07/04/25 at 21:00; Stop 08/03/25 at 20:59 Benzonatate 100 mg TID PO Last administered on 07/05/25at 13:19; Start 07/04/25 at 21:00; Stop 08/03/25 at 20:59 Fluoxetine HCl 40 mg DAILY PO Last administered on 07/05/25at 08:57; Start 07/05/25 at 09:00; Stop 08/04/25 at 08:59 Atorvastatin Calcium 5 mg PM PO Last administered on 07/04/25at 20:43; Start 07/04/25 at 21:00; Stop 08/03/25 at 20:59 Famotidine 20 mg BID PO Last administered on 07/05/25at 08:56; Start 07/04/25 at 21:00; Stop 08/03/25 at 20:59 Morphine Sulfate 2 mg Q4H PRN IVP Last administered on 07/05/25at 15:39; Start 07/04/25 at 15:00; Stop 07/05/25 at 17:56; Status DC Acetaminophen 650 mg Q4H PRN PO Last administered on 07/05/25at 14:33; Start 07/04/25 at 15:00; Stop 08/03/25 at 14:59 Ondansetron HCl 4 mg Q6H PRN IVP; Start 07/04/25 at 15:00; Stop 08/03/25 at 14:59 Lactulose 20 gm BID PRN PO; Start 07/04/25 at 15:00; Stop 08/03/25 at 14:59 Potassium Chloride 100 ml @ 100 mls/hr AD PRN IV; Start 07/04/25 at 15:00; Stop 08/03/25 at 14:59 Potassium Chloride 20 meq AD PRN PO; Start 07/04/25 at 15:00; Stop 08/03/25 at 14:59 Potassium Chloride 20 meq AD PRN PO; Start 07/04/25 at 15:00; Stop 08/03/25 at 14:59 Magnesium Sulfate 50 ml @ 0 mls/hr PROTOCOL PRN IV; Start 07/04/25 at 15:00; Stop 08/03/25 at 14:59 Insulin Human Regular INSULIN SLIDING SCAL... ACHS SQ Last administered on 07/05/25at 17:00; Start 07/04/25 at 16:30; Stop 08/03/25 at 16:29 Acetaminophen/ Hydrocodone Bitart 1 tab Q6H PRN PO Last administered on 07/05/25at 08:56; Start 07/04/25 at 20:00; Stop 07/05/25 at 17:56; Status DC Insulin Glargine 15 units HS SQ; Start 07/05/25 at 21:00; Stop 07/05/25 at 12:53; Status DC Sodium Bicarbonate 650 mg TID PO Last administered on 07/05/25at 14:33; Start 07/05/25 at 14:00; Stop 08/04/25 at 13:59 Ceftriaxone Sodium 1 gm Q24H IVPB Last administered on 07/05/25at 15:39; Start 07/05/25 at 15:30; Stop 07/15/25 at 15:29 Acetaminophen/ Hydrocodone Bitart 1 tab Q6H PRN PO; Start 07/05/25 at 18:00; Stop 07/12/25 at 17:59 Ibuprofen 800 mg Q8H PO; Start 07/05/25 at 18:00; Stop 08/04/25 at 17:59 Assessment/Plan ASSESSMENT: s/p TAR, left PLAN: As she is unable to control pain with just P.O. meds. I'd recommend wait until tomorrow to be D/C'd home. Morphine IV dc'd. Hydrocodone/APAP PO was changed to prep for D/C home. Rx Ibuprofen 800 mg PO q8 hours ordered. OK to D/C tomorrow if pain is controlled with p.o. meds only. F/U in 1 week at [facility] with Dr. Jain My Orders - SEAN JAIN DPM Procedure Category Date Status Time Ankle Comp 3vws Lt RAD 07/04/25 Resulted 09:45 *Nursing CPOE 07/04/25 Transmitted Communication: 13:39 SEAN JAIN DPM Jul 05, 2025 18:11
[2025-07-05] MEDS: PoTASSium chloRIDE 20MEQ ER 20 MEQ ERTAB PO PRN (19:22)
[2025-07-06 03:28] VITALS: BP 94/61; PULSE 68; RESP 16; TEMP 98.3
[2025-07-06 08:00] VITALS: BP 108/66; PULSE 72; RESP 17; TEMP 98.4
[2025-07-06 08:50] VITALS: O2SAT 99
--- NOTE | 2025-07-06 09:53 | DS ---
Discharge Summary Hospital Course Summary: This is a 60 year old female with history of multiple surgeries to left foot in the past is here today she underwent Total ankle arthroplasty with the implant left and Lateral ankle stabilization left given to DJD, osteochondral defect left ankle and ankle instability. Hospitalist consulted for medical management. The patient has foot brace applied to left foot 07/05/25 on examination patient was having doritos chips patient blood sugars have been elevated. The patient emperatrizugher reports she on a insulin pump which it was placed on Hold for surgery: she will go home now to get device. , physical therapy work with patient instructed how to use walker nonweightbearing continues with eye applications. All questions addressed 07/06/25 is clinically and hemodynamically stable for discharge. Patient's pain medication was modify yesterday patient reports pain is well controlled surgeon prescription was sent out to her pharmacy. Patient to follow-up with surgeon as directed. Patient will be discharged with DME walker nonweightbearing to left lower extremity. All questions and concerns were addressed. Procedure(s): Operative Note: DATE OF PROCEDURE: 07/04/25 [employer] COOK: None ANESTHESIA: General PREOPERATIVE DIAGNOSIS: 1. DJD, osteochondral defect left ankle 2. Ankle instability left POSTOPERATIVE DIAGNOSIS: Same Findings: Medial 3rd of the talus was cystic and the cartilage was delaminated PROCEDURE: 1. Total ankle arthroplasty with the implant left 2. Lateral ankle stabilization left ESTIMATED BLOOD LOSS: Minimal INDICATIONS: Patient had 3 procedure done in the left ankle for ankle problem by different surgeons. MRI shows degeneration of the medial 1/3 of the talar dome and sign of multiple lateral ankle stabilization procedures. The patient wanted more definitive procedure done for the cystic ankle problem. Injectables: 10 cc of 0.5% Marcaine plain locally. Popliteal block per anesthesia postoperatively Specimen: None Materials: Sherry Talaris Ankle implant of size 0 long tibia and size 0 talus. 3-0 Vicryl, 3-0 nylon, #2 FiberWire Hemostasis: Pneumonic thigh tourniquet at 280 mm Hg DESCRIPTION OF PROCEDURE: The patient was brought into the operating room and placed on table in a supine position and general anesthesia was induced. Time-out was called with all the staff in the room to identify the patient procedure and procedure site. Patient's left lower extremity was prepped and draped in usual aseptic manner, exsanguinated utilizing Esmarch bandage and pneumonic thigh tourniquet was inflated at 280 mm Hg. Procedure 1. Total ankle replacement left A curvilinear incision was made on the anterior aspect of the ankle. Incision was deepened in subcu tissue, care being taken to retract and protect all the vital neurovascular structures. Medial dorsal cutaneous nerve was retracted laterally. Extensor retinaculum were then incised longitudinally. Deeper dissection was carried down between the tibialis anterior tendon and extensor hallucis longus tendon. Major neurovascular bundle was retracted laterally. Small bleeders were coagulated. Capsular incision was made in the anterior aspect of the ankle joint longitudinally. Capsular layer was reflected medially and laterally to expose the ankle joint. Medial 1/3 portion of the talus was delaminated and cystic lesion was seen. Osteophyte was resected and passed from the operative site. Alignment jig was then placed on the left lower extremity. Using alignment jig cutting guide was placed in the position to take out mild varus deformity upon osteotomy. Using the aligned cutting block confirmed under the fluoroscopy in multiple views tibia and talus osteotomy were made. Trial was used to align for keel and stem placements. After measuring, size 0 implant was the best option for the patient. The trials were removed and the surgical wound was irrigated aggressively utilizing copious amounts of normal sterile saline with a pressure. The actual implant was then inserted and placement was confirmed under the fluoroscopy in multiple views. Range of motion was maintained and the ankle was stable. Procedure 2. Lateral ankle stabilization left At this point previous tendon transfer was identified on the lateral aspect of the incision the tendon was firmly fixated into the tarsal bone periosteal layer of the lateral malleolus and remaining anterior talofibular ligament was then sutured onto the stable tendon which was anchored into the talus to tighten the lateral collateral ligament while patient's foot was placed in a neutral position. #2 FiberWire was utilized for this task. Lateral ankle stability was confirmed. Under fluoroscopy the ankle was stressed in inversion motion and there was no displacement noted. The surgical wound was once again irrigated aggressively utilizing copious amounts of normal sterile saline with a pressure. With new instruments, capsular layer was reapproximated utilizing 3-0 Vicryl extensor retinaculum with 3-0 Vicryl subcutaneous tissue layer with 3-0 Vicryl and skin via 3-0 nylon. The surgical wound was dressed with dry sterile dressing followed by Saleh compression dressing. The patient tolerated the procedure and anesthesia. Assessment/Plan: discharged dx's; Medial 3rd of the talus was cystic and the cartilage was delaminated s/p Total ankle arthroplasty with the implant left hyperglycemia secondary to Type II DM; on insulin pump improved functional decline secondary to NWB to Ankle left Adult Obesity Class II PLAN: [ ] ADMISSION DATE: 07/04/25 DISCHARGE DATE: 07/06/25 DISPOSITION: home CONDITION: stable FOLLOW UP APPOINTMENT(S): Follow up with surgeon DR Perez on week at [facility] PROCEDURES: p Total ankle arthroplasty with the implant left IMAGING (S) report attached to summary : MICROBIOLOGY: report attached to summary; ACTIVITY: NWB to right foot, DME: walker was taught by PT how to ambulate with walker HOME MEDICATIONS remain the same CHANGES ON HOME MEDICATIONS none NEW MEDICATIONS prescription per surgeon: Hydrocodone and ibuprofen TEACHING: fall precaution Emergency instructions: The patient was instructed to present to the nearest Emergency Department or call 911 should their symptoms return or worsen. Home Medications: Reported Medications Insulin Lispro (Insulin Lispro) 100 Unit/Ml Vial, 100 UNIT SQ AD, VIAL 07/03/25 Semaglutide (Ozempic) 2 Mg/0.75 Ml (8 Mg/3 Ml) Pen.injctr, 0.25 MG SQ QWEEK 07/03/25 Benzonatate (Benzonatate) 200 Mg Capsule, 100 MG PO TID, CAP 07/03/25 Omeprazole (Omeprazole) 40 Mg Capsule.dr, 40 MG PO AM, CAP 07/03/25 Lorazepam (Lorazepam) 2 Mg/Ml Cartridge, 0.5 MG IJ AD, CARTRIDGE 07/03/25 Fluoxetine HCl (Fluoxetine HCl) 40 Mg Capsule, 40 MG PO AM, CAP 07/03/25 Pravastatin Sodium (Pravastatin Sodium) 10 Mg Tablet, 10 MG PO PM, TAB 07/03/25 Topiramate (Topiramate) 100 Mg Tablet, 100 MG PO BID, TAB 07/03/25 Gabapentin (Gabapentin) 100 Mg Capsule, 100 MG PO TID, CAP 07/03/25 Oxcarbazepine (Oxcarbazepine) 300 Mg Tablet, 300 MG PO BID, TAB 07/03/25 Pioglitazone HCl (Pioglitazone HCl) 30 Mg Tablet, 30 MG PO PM, TAB 07/03/25 Metformin HCl (Metformin HCl) 500 Mg Tablet, 500 MG PO BID, TAB 07/03/25 Continued Medications: Benzonatate (Benzonatate) 200 Mg Capsule 100 MG PO TID, CAP Fluoxetine HCl (Fluoxetine HCl) 40 Mg Capsule 40 MG PO AM, CAP Gabapentin (Gabapentin) 100 Mg Capsule 100 MG PO TID, CAP Insulin Lispro (Insulin Lispro) 100 Unit/Ml Vial 100 UNIT SQ AD, VIAL Lorazepam (Lorazepam) 2 Mg/Ml Cartridge 0.5 MG IJ AD, CARTRIDGE Metformin HCl (Metformin HCl) 500 Mg Tablet 500 MG PO BID, TAB Omeprazole (Omeprazole) 40 Mg Capsule.dr 40 MG PO AM, CAP Oxcarbazepine (Oxcarbazepine) 300 Mg Tablet 300 MG PO BID, TAB Pioglitazone HCl (Pioglitazone HCl) 30 Mg Tablet 30 MG PO PM, TAB Pravastatin Sodium (Pravastatin Sodium) 10 Mg Tablet 10 MG PO PM, TAB Semaglutide (Ozempic) 2 Mg/0.75 Ml (8 Mg/3 Ml) Pen.injctr 0.25 MG SQ QWEEK Topiramate (Topiramate) 100 Mg Tablet 100 MG PO BID, TAB Time spent arranging discharge: 31-60 minutes ATTESTATION BY PHYSICIAN I have seen and examined the patient. I reviewed the documentation, medical decision making, and treatment plan as noted by the mid-level provider above. I agree with the findings and plan of care. MARTA MORRIS MD, [facility] Jul 06, 2025 09:53
[2025-07-06 10:03] LABS: IMMATURE GRANULOCYTE ABSOLUTE 0.06 K/uL (0-1); NUCLEATED RED BLOOD CELLS 0.0 % (0.0-0.19); PLATELET COUNT (AUTO) 305 K/uL (130-400); RED BLOOD CELL COUNT(AUTO) 4.03 MIL/uL (4.00-5.50); RED CELL DISTRIBUTION WIDTH 15.2 % (11.0-15.5); WHITE BLOOD COUNT (AUTO) 12.5 K/uL (4.8-10.8)
[2025-07-06 10:09] LABS: CREATININE 1.0 mg/dL (0.5-1.0); GLOMERULAR FILTR. RATE CALC 65.0 mL/min (>90); GLUCOSE,RANDOM 142.0 mg/dL (70-105); SODIUM SERUM 142.0 mmol/L (136-145); UREA NITROGEN, BLOOD 20.0 mg/dL (7-18)
[2025-07-06 10:14] LABS: ASPARTATE AMINOTRANSFERASE 18.0 U/L (10-37); TOTAL PROTEIN, SERUM 5.8 g/dL (6.0-8.3)
--- NOTE | 2025-07-06 11:50 | PN ---
Subjective Review of Systems PROGRESS NOTE Date of Visit: Jul 06, 2025 Time of Visit: 11:46 Subjective HD#2 S/p TAR left. Pain is better controlled and only taking PO Hydrocodone. Had PT this am. No constitutional symp. + appetite. General: No Fever, No Chills, No Night Sweats, No Fatigue, No Malaise, No Appetite, No Other Objective Vitals and I/O Vital Sign (Last 24 Hours) 07/06/25 07/06/25 08:00 08:50 Temp 98.4 Pulse 72 Resp 17 B/P (MAP) 108/66 Pulse Ox 99 O2 Delivery Room Air* O2 Flow Rate 0 FiO2 21 Intake & Output (last 24hrs)0 07/05/25 07/05/25 07/06/25 15:00 23:00 07:00 Intake Total 131.0 ml 1400 ml 700 ml Output Total 540 ml Balance 131.0 ml 1400 ml 160 ml Other physical findings Boot is intact. No sign of compartment syndrome. No strikethrough. Medications Current Medications Cefazolin Sodium 2 gm STK-MED ONCE .ROUTE Last administered on 07/04/25at 07:34; Start 07/04/25 at 06:09; Stop 07/04/25 at 06:09; Status DC Sodium Chloride 1,000 ml @ As Directed STK-MED ONCE IV Last administered on 07/04/25at 07:02; Start 07/04/25 at 06:09; Stop 07/04/25 at 06:10; Status DC Lidocaine HCl 100 mg STK-MED ONCE .ROUTE; Start 07/04/25 at 07:14; Stop 07/04/25 at 07:14; Status DC Phenylephrine HCl 10 mg STK-MED ONCE IV; Start 07/04/25 at 07:14; Stop 07/04/25 at 07:14; Status DC Ondansetron HCl 4 mg STK-MED ONCE .ROUTE; Start 07/04/25 at 07:14; Stop 07/04/25 at 07:14; Status DC Succinylcholine Chloride 200 mg STK-MED ONCE .ROUTE; Start 07/04/25 at 07:14; Stop 07/04/25 at 07:15; Status DC Dexamethasone Sodium Phosphate 10 mg STK-MED ONCE .ROUTE; Start 07/04/25 at 07:14; Stop 07/04/25 at 07:15; Status DC Midazolam HCl 2 mg STK-MED ONCE .ROUTE; Start 07/04/25 at 07:15; Stop 07/04/25 at 07:15; Status DC Propofol 200 mg STK-MED ONCE IV; Start 07/04/25 at 07:15; Stop 07/04/25 at 07:15; Status DC Ketamine HCl 50 mg STK-MED ONCE .ROUTE; Start 07/04/25 at 07:15; Stop 07/04/25 at 07:15; Status DC Rocuronium [place] 50 mg STK-MED ONCE .ROUTE; Start 07/04/25 at 07:15; Stop 07/04/25 at 07:15; Status DC Fentanyl Citrate 100 mcg STK-MED ONCE .ROUTE; Start 07/04/25 at 07:15; Stop 07/04/25 at 07:16; Status DC Fentanyl Citrate 100 mcg STK-MED ONCE .ROUTE; Start 07/04/25 at 07:44; Stop 07/04/25 at 07:44; Status DC Acetaminophen 100 ml @ As Directed STK-MED ONCE .ROUTE; Start 07/04/25 at 07:47; Stop 07/04/25 at 07:47; Status DC Ephedrine Sulfate 50 mg STK-MED ONCE .ROUTE; Start 07/04/25 at 08:04; Stop 07/04/25 at 08:04; Status DC Bupivacaine HCl 5 mg STK-MED ONCE .ROUTE Last administered on 07/04/25at 09:40; Start 07/04/25 at 09:37; Stop 07/04/25 at 09:37; Status DC Fentanyl Citrate 100 mcg STK-MED ONCE .ROUTE Last administered on 07/04/25at 10:13; Start 07/04/25 at 10:11; Stop 07/04/25 at 10:11; Status DC Gabapentin 100 mg TID PO Last administered on 07/06/25at 09:10; Start 07/04/25 at 21:00; Stop 08/03/25 at 20:59 Insulin Human Lispro 100 unit AD SQ; Start 07/04/25 at 15:00; Stop 07/04/25 at 20:26; Status DC Oxcarbazepine 300 mg BID PO Last administered on 07/06/25at 09:09; Start 07/04/25 at 21:00; Stop 08/03/25 at 20:59 Topiramate 100 mg BID PO Last administered on 07/06/25at 09:10; Start 07/04/25 at 21:00; Stop 08/03/25 at 20:59 Benzonatate 100 mg TID PO Last administered on 07/06/25at 09:10; Start 07/04/25 at 21:00; Stop 08/03/25 at 20:59 Fluoxetine HCl 40 mg DAILY PO Last administered on 07/06/25at 09:10; Start 07/05/25 at 09:00; Stop 08/04/25 at 08:59 Atorvastatin Calcium 5 mg PM PO Last administered on 07/05/25at 21:12; Start 07/04/25 at 21:00; Stop 08/03/25 at 20:59 Famotidine 20 mg BID PO Last administered on 07/06/25at 09:10; Start 07/04/25 at 21:00; Stop 08/03/25 at 20:59 Morphine Sulfate 2 mg Q4H PRN IVP Last administered on 07/05/25at 15:39; Start 07/04/25 at 15:00; Stop 07/05/25 at 17:56; Status DC Acetaminophen 650 mg Q4H PRN PO Last administered on 07/05/25at 14:33; Start 07/04/25 at 15:00; Stop 08/03/25 at 14:59 Ondansetron HCl 4 mg Q6H PRN IVP; Start 07/04/25 at 15:00; Stop 08/03/25 at 14:59 Lactulose 20 gm BID PRN PO; Start 07/04/25 at 15:00; Stop 08/03/25 at 14:59 Potassium Chloride 100 ml @ 100 mls/hr AD PRN IV; Start 07/04/25 at 15:00; Stop 08/03/25 at 14:59 Potassium Chloride 20 meq AD PRN PO; Start 07/04/25 at 15:00; Stop 08/03/25 at 14:59 Potassium Chloride 20 meq AD PRN PO Last administered on 07/05/25at 19:22; Start 07/04/25 at 15:00; Stop 08/03/25 at 14:59 Magnesium Sulfate 50 ml @ 0 mls/hr PROTOCOL PRN IV; Start 07/04/25 at 15:00; Stop 08/03/25 at 14:59 Insulin Human Regular INSULIN SLIDING SCAL... ACHS SQ Last administered on 07/05/25at 21:21; Start 07/04/25 at 16:30; Stop 08/03/25 at 16:29 Acetaminophen/ Hydrocodone Bitart 1 tab Q6H PRN PO Last administered on 07/05/25at 08:56; Start 07/04/25 at 20:00; Stop 07/05/25 at 17:56; Status DC Insulin Glargine 15 units HS SQ; Start 07/05/25 at 21:00; Stop 07/05/25 at 12:53; Status DC Sodium Bicarbonate 650 mg TID PO Last administered on 07/06/25at 09:10; Start 07/05/25 at 14:00; Stop 08/04/25 at 13:59 Ceftriaxone Sodium 1 gm Q24H IVPB Last administered on 07/05/25at 15:39; Start 07/05/25 at 15:30; Stop 07/15/25 at 15:29 Acetaminophen/ Hydrocodone Bitart 1 tab Q6H PRN PO Last administered on 07/05/25at 21:13; Start 07/05/25 at 18:00; Stop 07/12/25 at 17:59 Ibuprofen 800 mg Q8H PO Last administered on 07/06/25at 09:10; Start 07/05/25 at 18:00; Stop 08/04/25 at 17:59 Assessment/Plan ASSESSMENT: s/p TAR, left PLAN: As she is able to control pain with just P.O. meds. She is ready to be D/C'd home. Pain meds were ordered through her pharmacy for home use F/U in [address] [facility] with Dr. Jain My Orders - SEAN JAIN DPM Procedure Category Date Status Time Ankle Comp 3vws Lt RAD 07/04/25 Resulted 09:45 *Nursing CPOE 07/04/25 Transmitted Communication: 13:39 SEAN JAIN DPM Jul 06, 2025 11:49
[2025-07-06 12:00] VITALS: BP 118/73; PULSE 75; RESP 18; TEMP 97.5
--- NOTE | 2025-07-06 12:37 | NUR ---
PATIENT WAS EDUCATED ON ANKLE REPLACEMENT AFTERCARE. PATIENT IS AWARE SHE NEEDS TO CALL DR. JAIN OFFICE ON TUESDAY TO SCHEDULE FOLLOW UP APPOINTMENT. PATIENT WAS EDUCATED ON S/S OF INFECTION AND WHEN TO CALL OR SEEK HELP. IV WAS REMOVED WITHOUT COMPLICATIONS. PATIENT IS AWAITING RIDE.
== END 2025-07-06 13:30 | disposition home or self-care (01) ==
LOC: DAH 06:24 → INTOOBSV 06:25 → DAHIP 06:25 → 4DH 11:00
PROVIDERS: ADMIT Internal Medicine; ATTEND Internal Medicine
DX: M19.072 Primary osteoarthritis, left ankle and foot (principal); M25.372 Other instability, left ankle; M21.962 Unspecified acquired deformity of left lower leg; I10 Essential (primary) hypertension; E78.5 Hyperlipidemia, unspecified; E11.65 Type 2 diabetes mellitus with hyperglycemia; E66.812 Obesity, class 2; K21.9 Gastro-esophageal reflux disease without esophagitis; Z90.710 Acquired absence of both cervix and uterus; Z79.4 Long term (current) use of insulin; Z96.41 Presence of insulin pump (external) (internal); Z79.899 Other long term (current) drug therapy; Z98.890 Other specified postprocedural states
CPT/HCPCS: 80048; 85025 ×2; 85610; 85730; 36415 ×4; 27702; 27695; 27745; 82948 ×9; 96376 ×2; 96375; 82947; 73610; 96365; 83036; 83735 ×2; 80053 ×2; 82803; 85027; 82010; 97161; 97530 ×4; 36600; 84132; 97116; A6260; J1815 ×6; G0378 ×51; A4223 ×2; C1776 ×3; A4649 ×2; J3010 ×3; J1100; J0330; J2270 ×5; J7030; J3490 ×3; J2003; J2250; J2704; J2405; J0665; J2371; J0690; A4930 ×2; A4215; A4213; A4222; A4221; A4663; A4216; A6450; J0696

== ENCOUNTER 2025-07-28 11:57 | Emergency (ER) | payer OTHER, MEDICARE ==
[~2025-07-28] VITALS: Ht 162.6 cm; Wt 79.8 kg
[2025-07-28 12:21] LABS: IMMATURE GRANULOCYTE ABSOLUTE 0.03 K/uL (0-1); NUCLEATED RED BLOOD CELLS 0.0 % (0.0-0.19); PLATELET COUNT (AUTO) 360 K/uL (130-400); RED BLOOD CELL COUNT(AUTO) 4.55 MIL/uL (4.00-5.50); RED CELL DISTRIBUTION WIDTH 14.6 % (11.0-15.5); WHITE BLOOD COUNT (AUTO) 7.7 K/uL (4.8-10.8)
[2025-07-28 12:30] LABS: CREATININE 0.8 mg/dL (0.5-1.0); GLOMERULAR FILTR. RATE CALC 85.0 mL/min (>90); GLUCOSE,RANDOM 124.0 mg/dL (70-105); SODIUM SERUM 137.0 mmol/L (136-145); UREA NITROGEN, BLOOD 17.0 mg/dL (7-18)
[2025-07-28] MEDS ORDERED: SULF1TAB42 PO (12:58)
--- NOTE | 2025-07-28 12:59 | ERN ---
General Chief Complaint: Post-Op Problem Stated Complaint: POST OP PROBLEM Time Seen by MD: 12:00 History of Present Illness Initial Comments 60-year-old female here for evaluation of left foot pain and drainage. Patient had a procedure done by Dr. Ana erickson and [facility] on the 04 of July. He has a follow up with him in 2-3 days. No fever no cough no shortness breath. No nausea vomiting diarrhea. No abdominal pain. Allergies: Coded Allergies: levetiracetam (Unverified Allergy, Unknown, 07/03/25) lisinopril (Unverified Allergy, Unknown, 07/03/25) Home Meds Reported Medications Insulin Lispro (Insulin Lispro) 100 Unit/Ml Vial, 100 UNIT SQ AD, VIAL 07/03/25 Semaglutide (Ozempic) 2 Mg/0.75 Ml (8 Mg/3 Ml) Pen.injctr, 0.25 MG SQ QWEEK 07/03/25 Benzonatate (Benzonatate) 200 Mg Capsule, 100 MG PO TID, CAP 07/03/25 Omeprazole (Omeprazole) 40 Mg Capsule.dr, 40 MG PO AM, CAP 07/03/25 Lorazepam (Lorazepam) 2 Mg/Ml Cartridge, 0.5 MG IJ AD, CARTRIDGE 07/03/25 Fluoxetine HCl (Fluoxetine HCl) 40 Mg Capsule, 40 MG PO AM, CAP 07/03/25 Pravastatin Sodium (Pravastatin Sodium) 10 Mg Tablet, 10 MG PO PM, TAB 07/03/25 Topiramate (Topiramate) 100 Mg Tablet, 100 MG PO BID, TAB 07/03/25 Gabapentin (Gabapentin) 100 Mg Capsule, 100 MG PO TID, CAP 07/03/25 Oxcarbazepine (Oxcarbazepine) 300 Mg Tablet, 300 MG PO BID, TAB 07/03/25 Pioglitazone HCl (Pioglitazone HCl) 30 Mg Tablet, 30 MG PO PM, TAB 07/03/25 Metformin HCl (Metformin HCl) 500 Mg Tablet, 500 MG PO BID, TAB 07/03/25 Past Medical History Past Medical History: Diabetes-Type II, Diverticulosis, High Cholesterol, Seizure Medical History Other: GASTROPARESIS, TD Past Surgical History: Appendectomy, Hysterectomy, Tonsillectomy Surgical History Other: LT ANKLE SX X3 , LT BREAST SX, LT KNEE SX, BILAT EYE SX Skin: (+) abrasion, (+) abscess, (+) change in color Review of Systems: was completed, & the rest were negative. Physical Exam Physical Exam Dictation GENERAL APPEARANCE NAD, activity normal for age, well developed/ well nourished, no cyanosis, pallor, or diaphoresis. EYES lids/conjunctiva normal. EARS/NOSE/THROAT Mucous membranes moist, nares normal, lips/teeth normal uvula midline without oral pharyngeal erythema, exudate or swelling TMs normal bilaterally. No lymphangitis/lymphedema. HEAD/NECK normocephalic atraumatic, no facial trauma, neck is supple. RESPIRATORY respiratory effort normal, speaks in full sentences, no tripod position, no accessory muscle use. Lungs clear to auscultation without rhonchi, wheezes, rales CARDIAC Regular rate and rhythm, no edema. ABDOMINAL Soft, ND/NT. No evidence of fluid wave. No pulsatile masses on exam, rebound tenderness, Barraza sign or pain over Mcburney's point. MUSCLES/EXTREMITIES No abnormal range of motion, no swelling. SKIN anterior aspect/dorsal aspect of left ankle with 6 cm surgical wound with sutures in place. Obvious pustulant drainage coming from the area. Warmth noted. NEUROLOGICAL Speech is clear and appropriate. Normal level of consciousness. Gait and coordination are normal. 5/5 strength in all extremities. PSYCH Normal mood and affect. Judgement/competence is appropriate Results Laboratory and Microbiology Lab and Micro Result Laboratory Tests Test 07/28/25 12:13 White Blood Count 7.7 K/uL (4.8-10.8) Red Blood Count 4.55 MIL/uL (4.00-5.50) Hemoglobin 12.4 g/dL (12.0-16.0) Hematocrit 38.0 % (36-48) Mean Corpuscular Volume 83.5 fL (79-99) Mean Corpuscular Hemoglobin 27.3 pg (27.0-33.0) Mean Corpuscular Hemoglobin Concent 32.6 g/dL (32.0-36.0) Red Cell Distribution Width 14.6 % (11.0-15.5) Platelet Count 360 K/uL (130-400) Mean Platelet Volume 8.8 fL (7.5-10.5) Immature Granulocyte % (Auto) 0.4 % (0-1) Neutrophils (%) (Auto) 55.6 % (40.0-77.0) Lymphocytes (%) (Auto) 32.4 % (21.0-51.0) Monocytes (%) (Auto) 7.4 % (3.0-13.0) Eosinophils (%) (Auto) 3.8 % (0.0-8.0) Basophils (%) (Auto) 0.4 % (0.0-5.0) Neutrophils # (Auto) 4.3 K/uL (1.8-7.7) Lymphocytes # (Auto) 2.5 K/uL (1.0-4.8) Monocytes # (Auto) 0.6 K/uL (0.1-1.0) Eosinophils # (Auto) 0.29 K/uL (0.00-0.70) Basophils # (Auto) 0.03 K/uL (0.00-0.20) Absolute Immature Granulocyte (auto 0.03 K/uL (0-1) Nucleated Red Blood Cells 0.0 % (0.0-0.19) Sodium Level 137 mmol/L (136-145) Potassium Level 4.4 mmol/L (3.5-5.1) Chloride Level 103 mmol/L (101-111) Carbon Dioxide Level 30 mmol/L (21-32) Blood Urea Nitrogen 17 mg/dL (7-18) Creatinine 0.8 mg/dL (0.5-1.0) Glomerular Filtration Rate Calc 85 mL/min (>90) Random Glucose 124 mg/dL (70-105) H Lactic Acid Level 1.0 mmol/L (0.8-2.5) Total Calcium 9.3 mg/dL (8.5-10.1) MDM 60-year-old female with a postsurgical drainage from the wound. Likely this is an infection. We will get cultures. WBCs within normal limits. We will have patient follow up with her medical specialist in two days. They can follow up the cultures. Advised on concerning signs and symptoms for which to return to the emergency room. MDM: Rationale: Tests considered and ordered secondary to shared decision making include: Previous outside records reviewed: Old ER visits. Risk of complication and/or morbidity or mortality of patient management: None Medications-Per medication reconciliation Need for hospitalization: Patient does not meet criteria for hospitalization. Need for emergency major/minor surgery: No There are no social concerns with this patient. Prescription drug management Prescriptions will include symptomatic care Patient's prior external medical records from other ER visits were reviewed by me as indicated. Prior testing and results from previous visits were reviewed. Prior tests were taken into account with medical decision making and resource utilization, independent historian/historians were used to obtain complete medical history. I independently interpreted the test that were performed, results were reviewed by me and considered findings on radiology if ordered. Medical management and examination interpretation discussions were had by me with other qualified healthcare professionals as indicated for the patient's care. ED Course Orders Procedure Category Date Status Time Cbc With Differential LAB 07/28/25 Complete 12:05 Aerobic Culture JOSÉ LUIS 07/28/25 Logged 12:05 Anaerobic Culture JOSÉ LUIS 07/28/25 Logged 12:05 Lactic Acid LAB 07/28/25 Complete 12:05 Basic Metabolic Panel LAB 07/28/25 Complete 12:05 Vital Signs Date Time Temp Pulse Resp B/P (MAP) Pulse Ox O2 Delivery O2 Flow Rate FiO2 07/28/25 11:59 97.0 68 16 154/71 98 Room Air DX & DISP Disposition: Discharge Departure Impression: Primary Impression: Cellulitis, wound, post-operative Additional Impression: Postoperative wound abscess Condition: Stable Scripts Sulfamethoxazole/Trimethoprim (Bactrim Ds Tablet) 800 Mg-160 Mg Tablet 1 TAB PO BID for 10 Days, #20 TAB 0 Refills Prov: ABILIO MARROQUIN MD 07/28/25 Referrals: SEBASTIAN DANG (PCP) ABILIO MARROQUIN MD Jul 28, 2025 12:59
--- NOTE | 2025-07-28 13:15 | NUR ---
PT HAD A SEIZURE DURING WOUND SWAB COLLECTION. SEZIURE LASTED 5 SECONS, PT RECOVERED WITHIN A MINUTE. VS STABLE. PT STATES SHE HAD SEIZURES FOR THE PAST 10 YEARS,NORMALLY CONTROLLED. PAIN CAN INDUCE THEM.INFORM DR MARROQUIN.NO ORDERS AT THIS TIME PT IS NOT SHOWING ANY ADVERSE EFFECTS.
[2025-07-28] MEDS: HYDROcodone/APAP 5/325 1 TAB TABLET PO ONE (13:21)
[2025-07-28 14:18] VITALS: BP 140/79; PULSE 63; RESP 14; TEMP 99; O2SAT 99
== END 2025-07-28 14:10 | disposition home or self-care (01) ==
LOC: EDH 11:57
DX: T81.41XA Infection following a procedure, superficial incisional surgical site, initial encounter (principal); L02.612 Cutaneous abscess of left foot; L03.116 Cellulitis of left lower limb; E11.43 Type 2 diabetes mellitus with diabetic autonomic (poly)neuropathy; K31.84 Gastroparesis; E78.00 Pure hypercholesterolemia, unspecified; Z88.8 Allergy status to other drugs, medicaments and biological substances; Z79.84 Long term (current) use of oral hypoglycemic drugs; Z79.85 Long-term (current) use of injectable non-insulin antidiabetic drugs; Z79.899 Other long term (current) drug therapy; Z90.49 Acquired absence of other specified parts of digestive tract; Z90.710 Acquired absence of both cervix and uterus; Z90.89 Acquired absence of other organs; X58.XXXA Exposure to other specified factors, initial encounter
CPT/HCPCS: 36415; 80048; 83605; 85025; 87070; 87076; 87086; 87186; 99283